=== PATIENT | female | born 1985 | race Caucasian/White ===

== ENCOUNTER 2022-03-24 07:54 | Day surgery (SDC) | payer OTHER, SELFPAY ==
[2022-03-18 14:31] VITALS: BMI 41.7
--- NOTE | 2022-03-20 12:10 | P.CONAN_ITS ---
Documented by User: Marah Newman NP 03/20/22 12:11 HPI - Anesthesia Eval Consult details Narrative: 36yo F for Upper Endoscopy PMFSH Past Medical History Medical History Anxiety and depression Fibromyalgia GERD (gastroesophageal reflux disease) Gestational diabetes IBS (irritable bowel syndrome) Migraines Pancreatitis Sleep apnea Surgical History Surgical History (Updated 03/24/22 @ 08:31 by Chaparrita Saeed MD) H/O tubal ligation History of López fundoplication Hx of cholecystectomy Hx of laparoscopy Social History Social History Patient Tobacco Use Status: Current everyday Tobacco user Tobacco use type: Smokeless Tobacco Use of substances other than those prescribed or required for medical reasons: No Are you DNR?: No Advance Directives: No Advance Directives Information Provided: Yes Meds Allergies Allergy/AdvReac Type Severity Reaction Status Date / Time codeine Allergy Unknown Nausea and Verified 03/24/22 08:01 Vomiting hydrocodone Allergy Unknown Nausea and Verified 03/24/22 08:01 Vomiting oxycodone Allergy Unknown Nausea and Verified 03/24/22 08:01 Vomiting Home Medications Medication Instructions Recorded Confirmed Last Taken Type amitriptyline 25 mg tablet 1 tab PO BEDTIME 03/18/22 03/18/22 Unknown History buspirone 15 mg tablet 1 tab PO BID 03/18/22 03/18/22 Unknown History cholecalciferol (vitamin D3) 25 1 cap PO DAILY 03/18/22 03/18/22 Unknown History mcg (1,000 unit) capsule duloxetine 60 mg capsule,delayed 1 cap PO DAILY 03/18/22 03/18/22 Unknown History release ferrous fumarate 324 mg (106 mg 0.5 tab PO BID 03/18/22 03/18/22 Unknown History iron) tablet (Ferrocite) ibuprofen 800 mg tablet 1 tab PO TID PRN Pain 03/18/22 03/18/22 Unknown History lorazepam 0.5 mg tablet 1 tab PO BEDTIME PRN insomnia 03/18/22 03/18/22 Unknown History pantoprazole 40 mg tablet,delayed 1 tab PO DAILY 03/18/22 03/18/22 Unknown History release ropinirole 2 mg tablet 1 tab PO BEDTIME 03/18/22 03/18/22 Unknown History sertraline 50 mg tablet 1 tab PO DAILY 03/18/22 03/18/22 Unknown History sumatriptan succinate 50 mg tablet 1 tab PO ONCE PRN Migraine Headache 03/18/22 03/18/22 Unknown History topiramate 25 mg tablet 25 mg PO BEDTIME 03/18/22 03/18/22 Unknown History Exam Exam Date and Time: March 20, 2022 1210 Height,Weight and Vital Signs: Height 5 ft 4 in Weight 110.223 kg Assessment and Plan Assessment Anesthesia Assessment: Chart Reviewed Documented by User: Chaparrita Saeed MD 03/24/22 08:34 PMFSH Active Problems Active Problems: Increased BMI ADDI Past Medical History Medical History Anxiety and depression Fibromyalgia GERD (gastroesophageal reflux disease) Gestational diabetes IBS (irritable bowel syndrome) Migraines Pancreatitis Sleep apnea Family History Family history of problems with anesthesia: No Surgical History Surgical History (Updated 03/24/22 @ 08:31 by Chaparrita Saeed MD) H/O tubal ligation History of López fundoplication Hx of cholecystectomy Hx of laparoscopy History of Problems with Anesthesia: No Social History Social History Patient Tobacco Use Status: Current everyday Tobacco user Tobacco use type: Smokeless Tobacco Use of substances other than those prescribed or required for medical reasons: No Are you DNR?: No Advance Directives: No Advance Directives Information Provided: Yes Meds Allergies Allergy/AdvReac Type Severity Reaction Status Date / Time codeine Allergy Unknown Nausea and Verified 03/24/22 08:01 Vomiting hydrocodone Allergy Unknown Nausea and Verified 03/24/22 08:01 Vomiting oxycodone Allergy Unknown Nausea and Verified 03/24/22 08:01 Vomiting Home Medications Medication Instructions Recorded Confirmed Last Taken Type amitriptyline 25 mg tablet 1 tab PO BEDTIME 03/18/22 03/18/22 Unknown History buspirone 15 mg tablet 1 tab PO BID 03/18/22 03/18/22 Unknown History cholecalciferol (vitamin D3) 25 1 cap PO DAILY 03/18/22 03/18/22 Unknown History mcg (1,000 unit) capsule duloxetine 60 mg capsule,delayed 1 cap PO DAILY 03/18/22 03/18/22 Unknown History release ferrous fumarate 324 mg (106 mg 0.5 tab PO BID 03/18/22 03/18/22 Unknown History iron) tablet (Ferrocite) ibuprofen 800 mg tablet 1 tab PO TID PRN Pain 03/18/22 03/18/22 Unknown History lorazepam 0.5 mg tablet 1 tab PO BEDTIME PRN insomnia 03/18/22 03/18/22 Unknown History pantoprazole 40 mg tablet,delayed 1 tab PO DAILY 03/18/22 03/18/22 Unknown His tory release ropinirole 2 mg tablet 1 tab PO BEDTIME 03/18/22 03/18/22 Unknown History sertraline 50 mg tablet 1 tab PO DAILY 03/18/22 03/18/22 Unknown History sumatriptan succinate 50 mg tablet 1 tab PO ONCE PRN Migraine Headache 03/18/22 03/18/22 Unknown History topiramate 25 mg tablet 25 mg PO BEDTIME 03/18/22 03/18/22 Unknown History Exam Height,Weight and Vital Signs: Height 5 ft 4 in Weight 110.223 kg Vital Signs Temp Pulse Resp BP Pulse Ox O2 Del Method 03/24/22 08:17 98.0 F 90 16 124/79 95 Room Air Airway Mallampati Class: II TM Dist: >3cm Neck ROM: Full Loose/Missing/Broken Teeth: Yes (missing top right back) Heart: RRR Lungs: CTAB Assessment and Plan Assessment Anesthesia Assessment: Anesthesia Plan Discussed Final Anesthetic Review Family History of Problems with Anesthesia: No History of Problems with Anesthesia: No NPO: Yes ASA Class: III Final Preanesthetic Review: No Changes in Pt Med Stat, Meds/Allgs Chart Reviewed, Consent Obtained/Reviewed and Anes Risks/Benef Reviewed Patient Risk: Intermediate Procedure Risk: Low Assessment/Block/Sedation in SS: Assess/Block/Sedation-SS Anesthetic Plan Anesthetic Plan: MAC: Disposition: Standard PACU
[2022-03-24 08:02] VITALS: BMI 41.5
[2022-03-24 08:17] VITALS: BP 124/79; PULSE 90; RESP 16; TEMP 36.7; O2SAT 95
[2022-03-24] MEDS: Lactated Ringers 1,000 ML 100 ML IVCONT (08:29)
--- NOTE | 2022-03-24 09:22 | MHC.SHP ---
Pre-Procedural Eval Section A Date of Service: 03/24/22 Section B Chief Complaint: reflux disease Details of Present Illness: see H&P no changes Relevant Family History (Specify if Yes): No Relevant Social History: None Present Medications: see Short Stay Collaborative assessment Medical History: No relevant PMH History of Previous Operations: No relevant previous surgery Allergies: Allergies Allergy/AdvReac Type Severity Reaction Status Date / Time codeine Allergy Unknown Nausea and Verified 03/24/22 08:01 Vomiting hydrocodone Allergy Unknown Nausea and Verified 03/24/22 08:01 Vomiting oxycodone Allergy Unknown Nausea and Verified 03/24/22 08:01 Vomiting Review of Systems Sugical H&P ROS: Negative: Constitution, Cardiovascular, Respiratory, Neurological, Psychiatric, Hem-Onc, Allergic/Immunologic, Gastrointestinal, Genitourinary, Musculoskeletal, Integumentary, Endocrine and Eyes/Ears/Nose/Throat Exam Surgical H&P Exam: Normal: HEENT, Normal: Heart, Normal: Lungs, Normal: Extremities, Normal: Abdomen, Normal: Skin and Normal: Neurological Plan Diagnosis/Plan: Unchanged I have reviewed the history and physical and performed a pertinent physical examination on my patient. No changes have occurred unless specified.
--- NOTE | 2022-03-24 09:44 | P.BOP_ITS ---
Brief Operative Note Date of Service: 03/24/22 Pre-op diagnosis: gerd Post-op diagnosis: same Procedure: upper endoscopy Surgeon: Luis Clark Anesthesia: MAC Was an Accounting Director used for this Procedure?: No Estimated blood loss (mL): 2 Pathology: other Condition: stable Disposition: PACU
[2022-03-24 09:51] VITALS: BP 107/71; PULSE 89; RESP 16; TEMP 36.3; O2SAT 97
[2022-03-24 10:06] VITALS: BP 111/74; PULSE 72; RESP 16; TEMP 36.3; O2SAT 96
--- NOTE | 2022-03-24 10:19 | OP_ITS ---
SURGEON: Luis Clark MD INDICATIONS: Gastroesophageal reflux disease. 03/24/22 PREOPERATIVE DIAGNOSIS: POSTOPERATIVE DIAGNOSIS: PROCEDURE PERFORMED: Upper endoscopy with biopsy. ESTIMATED BLOOD LOSS: COMPLICATIONS: ANESTHESIA: ASSISTANTS: SPECIMENS: MEDICATIONS: Monitored anesthesia care. DESCRIPTION OF PROCEDURE: History and physical performed. The risks and benefits of the procedure were explained to the patient. Informed consent was obtained. The patient was placed in a left lateral decubitus position. The Olympus videogastroscope was introduced into the esophagus, stomach, and duodenum. Examination was performed. The scope was removed. She tolerated the procedure well and was returned to recovery area in stable condition. FINDINGS: Esophagus: The esophagus was normal. The EG junction was slightly irregular. There was no esophagitis. Biopsies were obtained from the EG junction. Stomach: The stomach showed several benign-appearing gastric polyps in the fundus. All were less than 10 mm. Two of these were biopsied. Antral biopsies were obtained to rule out H pylori. Duodenum: The bulb and second portion were normal. IMPRESSION: 1. Gastroesophageal reflux disease. 2. Gastric polyps. RECOMMENDATION: Follow up with biopsy results. MD ENRIQUE Bermeo/KEVIN / [id number] MTDD
== END 2022-03-24 11:45 | disposition home or self-care (01) ==
PROVIDERS: PCP Family Medicine; Visit Provider Internal Medicine Gastroenterology
PROC: 0DJ08ZZ Inspection of Upper Intestinal Tract, Via Natural or Artificial Opening Endoscopic (ICD-10-PCS; CPT 43235; principal; 2022-03-24 08:50)
DX: K21.9 Gastro-esophageal reflux disease without esophagitis (principal); K31.7 Polyp of stomach and duodenum; K58.9 Irritable bowel syndrome, unspecified; K85.90 Acute pancreatitis without necrosis or infection, unspecified; M79.7 Fibromyalgia; F41.8 Other specified anxiety disorders; G47.33 Obstructive sleep apnea (adult) (pediatric); Z79.1 Long term (current) use of non-steroidal anti-inflammatories (NSAID); Z79.899 Other long term (current) drug therapy; Z88.8 Allergy status to other drugs, medicaments and biological substances; Z90.49 Acquired absence of other specified parts of digestive tract; Z98.890 Other specified postprocedural states
CPT/HCPCS: 43239; 88305; 88342